=== PATIENT | female | born 1970 | race Caucasian/White ===

== ENCOUNTER 2019-02-01 11:56 | Observation (INO) | payer OTHER ==
--- NOTE | 2019-02-01 11:16 | CT ---
CT of the abdomen and pelvis with contrast. HISTORY: Pain TECHNIQUE: Axial CT images were obtained of the abdomen and pelvis following administration of 100 mL of Isovue-370 in the right antecubital fossa without complication. Coronal and sagittal reconstructions obtained. FINDINGS: The lung bases are clear, no pleural effusion. The liver, spleen, adrenal glands, pancreas appear normal. The gallbladder is normal. No bulky retroperitoneal lymphadenopathy or abdominal ascites. The kidneys enhance and function symmetrically without evidence of obstructive uropathy. The large and small bowel are normal in caliber without evidence of obstruction. No focal pericolonic inflammation. The appendix is prominent in size with a trace periappendiceal stranding. No significant free pelvic fluid. Small amount of contrast is noted within the cecal region. No pelvic lymphadenopathy. No suspicious osseous abnormalities. IMPRESSION: 1. Appendicitis without evidence of rupture.
[2019-02-01 11:55] LABS: CHLORIDE,CL 97 mmol/L (98-107); SODIUM,NA 131 mmol/L (136-145)
[~2019-02-01 11:56] MED LIST: Iopamidol 755 MG/ML 500 ML Multipack Bottle IVPUSH ONE
--- NOTE | 2019-02-01 12:36 | PCM.HP ---
H&P History of Present Illness - General Date of Service: 02/01/19 Admit Problem/Dx: Appendicitis Source of Information: Patient History Limitations: Reports: No Limitations - History of Present Illness Initial Comments - Free Text/Narative: Patient is a 48 year old female who presents with RLQ. She woke up with generalized pain this morning at 1 am. Then this morning the pain localized to the RLQ. She had no appetite and drank a glass of water at 8 am. She denies fevers, chills or vomiting. She saw her PCP who bernadine a CBC which showed a WBC of 14K. Ct of the abdomen showed a non-perforated appendicitis. - Related Data Allergies/Adverse Reactions: Allergies Allergy/AdvReac Type Severity Reaction Status Date / Time No Known Allergies Allergy Verified 01/12/14 11:52 Home Medications: Home Meds . [No Known Home Meds] 01/12/14 [History] Past Medical History - Past Health History Medical/Surgical History: Denies Medical/Surgical History - Past Surgical History Female Surgical History: Reports: Endometrial Ablation, Tubal Ligation Social & Family History - Alcohol Use Alcohol Use History: Yes Alcohol Use Frequency: Socially H&P Review of Systems - Review of Systems: Review Of Systems: ROS reveals no pertinent complaints other than HPI. Exam - Exam Exam: See Below - Exam General: Alert, Oriented HEENT: Conjunctiva Clear, Hearing Intact, Mucosa Moist & Gila, Posterior Pharynx Clear Neck: Supple, Trachea Midline Lungs: Clear to Auscultation, Normal Respiratory Effort Cardiovascular: Regular Rate, Regular Rhythm GI/Abdominal Exam: Soft, No Mass, Tender (RLQ). No: Distended Back Exam: Normal Inspection, Full Range of Motion Skin: Warm, Dry, Intact Neuro Extensive - Mental Status: Alert, Oriented x3 Psychiatric: Alert, Normal Affect, Normal Mood - Patient Data Lab Results Last 24 hrs: Laboratory Results - last 24 hr 02/01/19 02/01/19 02/01/19 Range/Units 09:30 11:13 11:13 WBC 14.06 H (4.0-11.0) K/uL RBC 4.39 (4.30-5.90) M/uL Hgb 13.2 (12.0-16.0) g/dL Hct 38.8 (36.0-46.0) % MCV 88.4 (80.0-98.0) fL MCH 30.1 (27.0-32.0) pg MCHC 34.0 (31.0-37.0) g/dL RDW Std Deviation 44.4 (28.0-62.0) fl RDW Coeff of Lamont 14 (11.0-15.0) % Plt Count 292 (150-400) K/uL MPV 8.70 (7.40-12.00) fL Nucleated RBC % 0.0 /100WBC Nucleated RBCs # 0 K/uL Sodium 131 L (136-145) mmol/L Potassium 3.8 (3.5-5.1) mmol/L Chloride 97 L (98-107) mmol/L Carbon Dioxide 24.5 (21.0-32.0) mmol/L BUN 11 (7.0-18.0) mg/dL Creatinine 0.9 (0.6-1.0) mg/dL Est Cr Clr Drug Dosing TNP Estimated GFR (MDRD) > 60.0 ml/min Glucose 120 H (74-106) mg/dL Calcium 9.2 (8.5-10.1) mg/dL Total Bilirubin 0.7 (0.2-1.0) mg/dL AST 18 (15-37) IU/L ALT 22 (14-63) IU/L Alkaline Phosphatase 55 (46-116) U/L Total Protein 7.4 (6.4-8.2) g/dL Albumin 4.0 (3.4-5.0) g/dL Globulin 3.4 (2.6-4.0) g/dL Albumin/Globulin Ratio 1.2 (0.9-1.6) Urine Color YELLOW Urine Appearance CLEAR Urine pH 5.5 (5.0-8.0) Ur Specific [place] 1.010 (1.001-1.035) Urine Protein NEGATIVE (NEGATIVE) mg/dL Urine Glucose (UA) NEGATIVE (NEGATIVE) mg/dL Urine Ketones NEGATIVE (NEGATIVE) mg/dL Urine Occult Blood NEGATIVE (NEGATIVE) Urine Nitrite NEGATIVE (NEGATIVE) Urine Bilirubin NEGATIVE (NEGATIVE) Urine Urobilinogen 0.2 (<2.0) EU/dL Ur Leukocyte Esterase NEGATIVE (NEGATIVE) Urine RBC NONE SEEN (0-2/HPF) Urine WBC 0-1 (0-5/HPF) Ur Epithelial Cells RARE (NONE-FEW) Urine Bacteria RARE (NEGATIVE) Result Diagrams: 02/01/19 11:13 02/01/19 11:13 - Problem List (1) Acute appendicitis SNOMED Code(s): 40361678 ICD Code: K35.80 - UNSPECIFIED ACUTE APPENDICITIS Status: Acute Current Visit: Yes Problem List Initiated/Reviewed/Updated: Yes Orders Last 24hrs: Active Orders 24 hr Category Date Time Status HCG QUALITATIVE,URINE [URCHEM] Routine Lab 02/01/19 12:23 Ordered Lactated Ringers [Ringers, Lactated] 1,000 ml Med 02/01/19 12:30 Ordered IV ASDIRECTED Medication Orders Lactated Ringer's (Ringers, Lactated) 1,000 mls @ 100 mls/hr IV ASDIRECTED TRICIA Assessment/Plan Comment:: The patient and I discussed the pathophysiology of appendicitis. The treatment is appendectomy. I will attempt it laparoscopically but should I be unable to perform it safely I will convert to open. The patient and i discussed the perioperative course as well as the risks including bleeding, infection or damage to surrounding structures. She verbalized understanding and wishes to proceed.
[2019-02-01] MEDS ORDERED: HYDROmorphone 2 MG/ML SDV IVPUSH PRN (12:38)
[2019-02-01] MEDS ORDERED: Ondansetron 4 MG/2 ML SDV IVPUSH PRN (12:38)
[2019-02-01] MEDS ORDERED: Sodium Chloride 0.9% 10 ML SDV IV PRN (12:38)
[2019-02-01] MEDS ORDERED: Sodium Chloride 0.9% 10 ML Syringe FLUSH PRN (12:38)
[2019-02-01] MEDS ORDERED: Sodium Chloride 0.9% 2.5 ML Syringe FLUSH PRN (12:38)
[2019-02-01] MEDS ORDERED: Piperacillin/Tazobactam 3.375 GM in Sodium Chloride 0.9% 50 ML IV ONE (12:39)
--- NOTE | 2019-02-01 12:41 | PCM.PREANE ---
Preanesthetic Assessment - Anesthesia/Transfusion/Family Hx Anesthesia History: Prior Anesthesia Without Reaction Family History of Anesthesia Reaction: No - Review of Systems General: No Symptoms Pulmonary: No Symptoms Cardiovascular: No Symptoms Gastrointestinal: Abdominal Pain Neurological: No Symptoms Other: Reports: None - Physical Assessment NPO Status Date: 01/31/19 Mental Status: Alert & Oriented x3 Dentition: Reports: Normal Dentition ROM/Head Extension: Full Lungs: Clear to Auscultation, Normal Respiratory Effort Cardiovascular: Regular Rate, Regular Rhythm - Lab Values: Laboratory Last Values WBC 14.06 K/uL (4.0-11.0) H 02/01/19 11:13 RBC 4.39 M/uL (4.30-5.90) 02/01/19 11:13 Hgb 13.2 g/dL (12.0-16.0) 02/01/19 11:13 Hct 38.8 % (36.0-46.0) 02/01/19 11:13 MCV 88.4 fL (80.0-98.0) 02/01/19 11:13 MCH 30.1 pg (27.0-32.0) 02/01/19 11:13 MCHC 34.0 g/dL (31.0-37.0) 02/01/19 11:13 RDW Std Deviation 44.4 fl (28.0-62.0) 02/01/19 11:13 RDW Coeff of Lamont 14 % (11.0-15.0) 02/01/19 11:13 Plt Count 292 K/uL (150-400) 02/01/19 11:13 MPV 8.70 fL (7.40-12.00) 02/01/19 11:13 Nucleated RBC % 0.0 /100WBC 02/01/19 11:13 Nucleated RBCs # 0 K/uL 02/01/19 11:13 Sodium 131 mmol/L (136-145) L 02/01/19 11:13 Potassium 3.8 mmol/L (3.5-5.1) 02/01/19 11:13 Chloride 97 mmol/L (98-107) L 02/01/19 11:13 Carbon Dioxide 24.5 mmol/L (21.0-32.0) 02/01/19 11:13 BUN 11 mg/dL (7.0-18.0) 02/01/19 11:13 Creatinine 0.9 mg/dL (0.6-1.0) 02/01/19 11:13 Est Cr Clr Drug Dosing TNP 02/01/19 11:13 Estimated GFR (MDRD) > 60.0 ml/min 02/01/19 11:13 Glucose 120 mg/dL (74-106) H 02/01/19 11:13 Calcium 9.2 mg/dL (8.5-10.1) 02/01/19 11:13 Total Bilirubin 0.7 mg/dL (0.2-1.0) 02/01/19 11:13 AST 18 IU/L (15-37) 02/01/19 11:13 ALT 22 IU/L (14-63) 02/01/19 11:13 Alkaline Phosphatase 55 U/L (46-116) 02/01/19 11:13 Total Protein 7.4 g/dL (6.4-8.2) 02/01/19 11:13 Albumin 4.0 g/dL (3.4-5.0) 02/01/19 11:13 Globulin 3.4 g/dL (2.6-4.0) 02/01/19 11:13 Albumin/Globulin Ratio 1.2 (0.9-1.6) 02/01/19 11:13 Urine Color YELLOW 02/01/19 09:30 Urine Appearance CLEAR 02/01/19 09:30 Urine pH 5.5 (5.0-8.0) 02/01/19 09:30 Ur Specific [place] 1.010 (1.001-1.035) 02/01/19 09:30 Urine Protein NEGATIVE mg/dL (NEGATIVE) 02/01/19 09:30 Urine Glucose (UA) NEGATIVE mg/dL (NEGATIVE) 02/01/19 09:30 Urine Ketones NEGATIVE mg/dL (NEGATIVE) 02/01/19 09:30 Urine Occult Blood NEGATIVE (NEGATIVE) 02/01/19 09:30 Urine Nitrite NEGATIVE (NEGATIVE) 02/01/19 09:30 Urine Bilirubin NEGATIVE (NEGATIVE) 02/01/19 09:30 Urine Urobilinogen 0.2 EU/dL (<2.0) 02/01/19 09:30 Ur Leukocyte Esterase NEGATIVE (NEGATIVE) 02/01/19 09:30 Urine RBC NONE SEEN (0-2/HPF) 02/01/19 09:30 Urine WBC 0-1 (0-5/HPF) 02/01/19 09:30 Ur Epithelial Cells RARE (NONE-FEW) 02/01/19 09:30 Urine Bacteria RARE (NEGATIVE) 02/01/19 09:30 Urine HCG, Qual NEGATIVE (NEGATIVE) 02/01/19 09:30 - Allergies Allergies/Adverse Reactions: Allergies Allergy/AdvReac Type Severity Reaction Status Date / Time No Known Allergies Allergy Verified 01/12/14 11:52 - Blood Blood Available: No - Anesthesia Plan Pre-Op Medication Ordered: None - Acknowledgements Anesthesia Type Planned: General Anesthesia Pt an Appropriate Candidate for the Planned Anesthesia: Yes Alternatives and Risks of Anesthesia Discussed w Pt/Guardian: Yes Pt/Guardian Understands and Agrees with Anesthesia Plan: Yes PreAnesthesia Questionnaire - HOME MEDS Home Medications: Home Meds . [No Known Home Meds] 01/12/14 [History] - CURRENT (IN HOUSE) MEDS Current Meds: Current Medications Lactated Ringer's (Ringers, Lactated) 1,000 mls @ 100 mls/hr IV ASDIRECTED TRICIA Discontinued Medications Iopamidol (Isovue Multipack-370 (76%)) 100 ml IVPUSH ONETIME ONE Stop: 02/01/19 10:59 Last Admin: 02/01/19 10:59 Dose: 100 ml
[2019-02-01] MEDS ORDERED: HYDROmorphone 2 MG/ML Syringe IVPUSH ONE (12:55)
[2019-02-01] MEDS: Lactated Ringers 1,000 ML IV SCH ×2 (13:21→18:45)
[2019-02-01] MEDS ORDERED: Bupivacaine 0.5% 30 ML SDV ONE (15:49)
[2019-02-01] MEDS ORDERED: Ondansetron 4 MG/2 ML SDV ONE (16:13)
[2019-02-01] MEDS ORDERED: fentaNYL 250 MCG/5 ML SDV ONE (16:13)
[2019-02-01] MEDS ORDERED: Lidocaine 2% 5 ML SDV ONE (16:13)
[2019-02-01] MEDS ORDERED: Propofol 200 MG/20 ML SDV ONE (16:13)
[2019-02-01] MEDS ORDERED: Midazolam 1 MG/ML 2 ML SDV ONE (16:13)
[2019-02-01] MEDS ORDERED: Glycopyrrolate 0.2 MG/ML SDV ONE (16:37)
[2019-02-01] MEDS ORDERED: ePHEDrine 50 MG/ML SDV ONE (16:38)
[2019-02-01] MEDS ORDERED: Phenylephrine/Normal Saline 100 MCG/ML 10 ML Syringe ONE (16:46)
[2019-02-01] MEDS ORDERED: Ketorolac 30 MG/ML SDV ONE (17:27)
--- NOTE | 2019-02-01 17:45 | PCM.OPNOTE ---
- General Post-Op/Procedure Note Date of Surgery/Procedure: 02/01/19 Operative Procedure(s): Laparoscopic appendectomy Findings: Non-perforate appendix. Appendix was dilated and inflamed. Pre Op Diagnosis: Appendicitis Post-Op Diagnosis: Same Anesthesia Technique: MAC Primary Surgeon: Tamika Valdovinos Fluid Replacement, Intraop: 2,000 Output, Urine Amount: 15 EBL in mLs: 10 Condition: Good
[2019-02-01] MEDS ORDERED: 50% Dextrose in Water 50 ML Syringe IVPUSH PRN (17:46)
[2019-02-01] MEDS ORDERED: Naloxone 0.4 MG/ML Syringe IVPUSH PRN (17:46)
[2019-02-01] MEDS ORDERED: EPINEPHrine 1:10,000 1 MG/10 ML Syringe IVPUSH PRN (17:46)
[2019-02-01] MEDS ORDERED: Albuterol 0.083% 2.5 MG/3 ML Neb Soln NEB PRN (17:46)
[2019-02-01] MEDS ORDERED: Atropine 0.1 MG/ML 10 ML Syringe IVPUSH PRN ×2 (17:46)
[2019-02-01] MEDS ORDERED: fentaNYL 100 MCG/2 ML SDV IVPUSH PRN (17:46)
--- NOTE | 2019-02-01 18:12 | PCM.POSTAN ---
POST ANESTHESIA ASSESSMENT - MENTAL STATUS Mental Status: Alert, Oriented - VITAL SIGNS Pulse Rate: 90 SaO2: 100 (2LPM) Resp Rate: 12 Blood Pressure: 118/68 - RESPIRATORY Respiratory Status: Respiratory Rate WNL, Airway Patent, O2 Saturation Stable - CARDIOVASCULAR CV Status: Pulse Rate WNL, Blood Pressure Stable - GASTROINTESTINAL GI Status: No Symptoms - PAIN Pain Score: 1 - POST OP HYDRATION Hydration Status: Adequate & Stable
[2019-02-01 18:20] LABS: CHLORIDE,CL 101 mmol/L (98-107); SODIUM,NA 135 mmol/L (136-145)
--- NOTE | 2019-02-01 18:43 | OR ---
SURGEON: TAMIKA VALDOVINOS MD DATE OF PROCEDURE: 02/01/2019 PREOPERATIVE DIAGNOSIS: Acute appendicitis. POSTOPERATIVE DIAGNOSIS: Acute appendicitis. PROCEDURE PERFORMED: Laparoscopic appendectomy. PRIMARY SURGEON: Tamika Valdovinos MD. ANESTHESIA: General endotracheal anesthesia. FLUIDS: 2000 mL of crystalloid. ESTIMATED BLOOD LOSS: 10 mL. URINE OUTPUT: 15 mL. FINDINGS: Grossly inflamed and enlarged appendix with no evidence of perforation. COMPLICATIONS: None. INDICATIONS: The patient is a 48-year-old female who developed acute abdominal pain last night at 1:00 a.m. The pain persisted through the morning and then became centered in her right lower quadrant. She was seen at a primary care provider's office who performed a CBC and CT of the abdomen and pelvis. She was found to have a white count of 14,000 and an acutely enlarged and inflamed appendix on CT. I explained the Pathophysiology of appendicitis. The treatment for this is appendectomy. I explained both the laparoscopic and open approaches. She was consented for a laparoscopic possible open appendectomy. I explained the procedures, expected perioperative course, and risks including bleeding, infection, or damage to surrounding structures. She verbalized understanding and wishes to proceed. PROCEDURE IN DETAIL: The patient was brought into the OR and placed on the OR table in supine position. A time-out was completed verifying the patient's name, age, date of , allergies, and procedure to be performed. General endotracheal anesthesia was induced. The left arm was tucked to the patient's side and a Fernandez catheter placed. The abdomen was prepped and draped in usual standard fashion. I anesthetized an area 2 fingerbreadths below the left subcostal margin and the midclavicular line with 0.5% Marcaine plain. An 11-blade was used to make a 1 cm incision in this area. I then gained entry into the abdomen using a 5 mm optical trocar and a 0 degree 5 mm scope. All layers of the abdominal wall were visualized upon entry. The abdomen was then insufflated. I switched to 5 mm 30 degree scope and placed this in the abdomen. I inspected the area underneath my initial trocar placement and no damage to surrounding structures was noted. A 5 mm trocar was placed under direct visualization just left and lateral of the umbilicus. A 12 mm Yashira trocar was placed under direct visualization in the left lower quadrant. The patient was placed into Trendelenburg position and airplaned slightly to the left. I identified the cecum and followed the tenia down to the base. The patient's appendix was retrocecal with posterior peritoneal attachments. I grasped the tip of the appendix and elevated it. The peritoneal attachments were taken down using a [place] dissector and a harmonic device. Once the peritoneal attachments were freed up, I then started taking down the appendiceal mesentery from distal to proximal using a Harmonic device. Once the appendix was cleared away from all of its attachments to the appendiceal mesentery, I stapled across the base using an endoscopic stapling device with a 45 mm blue load of kristin. The appendix was then placed in an EndoCatch bag and removed through the 12 mm port site. I then reinspected my operative field. It appeared to be hemostatic and the staple line just appeared to be intact. I suctioned out the pelvis as there appeared to be some murky fluid in the area. I then irrigated the pelvis as well as my operative site with normal saline and suctioned this out. Again, my operative field appeared hemostatic. I closed the 12 mm trocar site with an 0 Vicryl suture on a Pete-Wendie device. The 5 mm trocars were removed under direct visualization and the abdomen allowed to desufflate. The subcutaneous fat at the 12 mm trocar site was closed with interrupted 3-0 Vicryl sutures. The skin was closed with a running 4-0 Monocryl stitch. The 5 mm trocar sites were closed with interrupted 4-0 Monocryl sutures. Steri-Strips and sterile dressings were applied. The patient tolerated the procedure well and was taken to the PACU in stable condition. The patient had minimal urine output during the case and so the Fernandez catheter was not removed. 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 We will watch this closely throughout the night. All counts were complete and correct at the end of the case. ROMARIO / KADEN /[id number]
[2019-02-01] MEDS: Piperacillin/Tazobactam 3.375 GM in Sodium Chloride 0.9% 50 ML IV SCH (20:25)
[2019-02-01] MEDS: Acetaminophen/HYDROcodone 325-5 MG Tab PO PRN (20:26)
[2019-02-01] MEDS ORDERED: ceFAZolin 1 GM in Premix Bag 1 BAG IV SCH (21:00)
[2019-02-02] MEDS ORDERED: HYDROmorphone 1 MG/ML Syringe IV PRN (00:17)
[2019-02-02] MEDS: Lactated Ringers 1,000 ML IV SCH ×2 (00:33→08:28)
[2019-02-02] MEDS: Acetaminophen/HYDROcodone 325-5 MG Tab PO PRN ×2 (00:37→08:47)
[2019-02-02] MEDS: Piperacillin/Tazobactam 3.375 GM in Sodium Chloride 0.9% 50 ML IV SCH (04:11)
[2019-02-02 06:24] LABS: CHLORIDE,CL 102 mmol/L (98-107); SODIUM,NA 136 mmol/L (136-145)
--- NOTE | 2019-02-02 07:20 | PCM48HPAN ---
Post Anesthesia Note - EVALUATION WITHIN 48HRS OF ANESTHETIC Vital Signs in Normal Range: Yes Patient Participated in Evaluation: Yes Respiratory Function Stable: Yes Airway Patent: Yes Cardiovascular Function Stable: Yes Hydration Status Stable: Yes Pain Control Satisfactory: Yes Nausea and Vomiting Control Satisfactory: Yes Mental Status Recovered: Yes Pulse Rate: 59 SaO2: 95 Resp Rate: 18 Blood Pressure: 115/57
== END 2019-02-02 10:00 | disposition home or self-care (01) ==
LOC: MW.SDS 11:56 → MW.MS 12:38 → UNDOADMOB 18:37 → MW.MS 18:37
PROVIDERS: ADMIT Surgery; ATTEND Surgery
DX: K35.80 Unspecified acute appendicitis (principal); J45.909 Unspecified asthma, uncomplicated; Z79.899 Other long term (current) drug therapy
CPT/HCPCS: 36415; 74177; 74177-26; 80048; 80053; 81001; 81025; 85027; A9270-GY; C1776; J1170; J1885; J2001; J2250; J2370; J2405; J2543; J2704; J3010; J3490; J7050; J7120; Q9967

== ENCOUNTER 2021-09-16 08:47 | Day surgery (SDC) | payer BC, OTHER ==
[~2021-09-16 08:47] MED LIST changes: -Iopamidol 755 MG/ML 500 ML Multipack Bottle IVPUSH ONE; +Lactated Ringers 1,000 ML IV SCH; +Sodium Chloride 0.9% 10 ML Syringe FLUSH PRN; +Sodium Chloride 0.9% 2.5 ML Syringe FLUSH PRN; +Sodium Chloride 0.9% 20 ML SDV IV PRN
[2021-09-16] MEDS ORDERED: Propofol 200 MG/20 ML SDV ONE ×2 (09:44→09:53)
[2021-09-16] MEDS ORDERED: fentaNYL 100 MCG/2 ML SDV ONE (09:44)
== END 2021-09-16 12:01 ==
LOC: MW.SDS 08:47
PROVIDERS: ATTEND Surgery
DX: K63.5 Polyp of colon (principal); K52.9 Noninfective gastroenteritis and colitis, unspecified; K64.9 Unspecified hemorrhoids; J45.909 Unspecified asthma, uncomplicated; E66.9 Obesity, unspecified; Z79.899 Other long term (current) drug therapy; Z90.49 Acquired absence of other specified parts of digestive tract; Z98.890 Other specified postprocedural states; Z68.33 Body mass index [BMI] 33.0-33.9, adult
CPT/HCPCS: 45380; J2704; J3010; J7120; 00811